=== PATIENT | male | born 2000 | race Two or more races ===

== ENCOUNTER 2021-08-31 10:35 | Emergency (ER) | payer BC ==
[2021-08-31 10:58] VITALS: BP 112/68; PULSE 107; TEMP 98.9; BMI 19.8
[2021-09-01 10:07] LABS: SARS-CoV-2 NAA Not Detected (Not Detected)
== END 2021-08-31 17:11 | disposition home or self-care (01) ==
LOC: JER 10:35
DX: J02.9 Acute pharyngitis, unspecified (principal)
CPT/HCPCS: 87651; 87804; 99283-25; C9803; U0003; U0005